=== PATIENT | female | born 1985 | race Caucasian/White ===

== ENCOUNTER 2022-01-21 21:47 | Emergency (ER) | payer MEDICAID, SELFPAY ==
[2022-01-21 22:15] VITALS: BP 117/64; PULSE 84; RESP 18; TEMP 35.9; O2SAT 97; BMI 27.4
--- NOTE | 2022-01-21 23:59 | ED.BACK ---
HPI - Back Pain/Injury General Chief Complaint: Back Injury/Pain Stated Complaint: Back Injury Time Seen by Provider: 01/21/22 22:23 History of Present Illness HPI Narrative: 36-year-old woman presenting to the emergency department with complaint of low back pain. Later today playing with baby nephew. Went to get off the floor and felt a pop in her low back and has been amplifying and pain ever since. Took some Aleve actually about 600 mg or so and helps a little bit but is throbbing pain just too much to let her sleep. Does not usually have a history of back problems. Has had some tingling in her left thigh anteriorly but no loss of sensation. No loss of bowel or bladder control. No radiating pain down her legs. Related Data Home Medications Medication Instructions Recorded Confirmed No Known Home Medications 01/21/22 01/21/22 Allergies Allergy/AdvReac Type Severity Reaction Status Date / Time Penicillins AdvReac Hives Verified 01/21/22 22:18 Review of Systems Status of ROS: Reports: 6 or more systems reviewed and unremarkable except as noted in History and below PFSH PFS Social History Smoking Status: Never smoker How often do you have a drink containing alcohol: never AUDIT-C Alcohol total score: 0 Non-prescribed substance use: denies use Exam Narrative: Exam Narrative: Is pleasant. NAD. Seems sore but not demonstrating tremendously in transition. Breathing easily. Conversing easily. Cardiovascular with regular rate and rhythm Abdomen is soft nontender. Anterior compression of the iliac crest does result in some low back discomfort. Straight leg raise is negative. She is well perfused without edema peripherally. She does have good strength. Mikayla's is positive indicating the left SI joint. She is sore to palpation around this area; even more so in the surrounding musculature Const: Vital Signs, click to edit/add: Vital Signs - 24 hr 01/21/22 22:15 Temperature 96.7 F L Pulse Rate [Pulse Oximeter] 84 Respiratory Rate 18 Blood Pressure [Le ft Upper Arm] 117/64 Pulse Oximetry 97 Oxygen Delivery Me thod Room Air Documenting provider has reviewed patient's vital signs: yes Course Vital Signs Vital signs: Initial Vital Signs Temperature 96.7 F L 01/21/22 22:15 Temperature Source Temporal Artery Scan 01/21/22 22:15 Pulse Rate 84 01/21/22 22:15 Respiratory Rate 18 01/21/22 22:15 Blood Pressure 117/64 01/21/22 22:15 Blood Pressure Mean 81 01/21/22 22:15 Blood Pressure Position Semi-Fowlers 01/21/22 22:15 Pulse Oximetry 97 01/21/22 22:15 Oxygen Delivery Method 01/21/22 22:15 Vital Signs Temperature 96.7 F L 01/21/22 22:15 Pulse Rate 84 01/21/22 22:15 Respiratory Rate 18 01/21/22 22:15 Blood Pressure 117/64 01/21/22 22:15 Pulse Oximetry 97 01/21/22 22:15 Oxygen Delivery Method 01/21/22 22:15 Temperature 96.7 F L 01/21/22 22:15 Pulse Rate 84 01/21/22 22:15 Respiratory Rate 18 01/21/22 22:15 Blood Pressure 117/64 01/21/22 22:15 Pulse Oximetry 97 01/21/22 22:15 Oxygen Delivery Method 01/21/22 22:15 MDM - Back Pain/Injury MDM Narrative Medical decision making narrative: This tingling that she discussed in her left thigh might represent a radicular symptom from some impingement however not entirely convincing. I would make some prednisone available though if not quickly improving. Discharge Plan Discharge Clinical Impression: Low back strain Patient Disposition: Home, Self-Care Condition: Stable Additional Instructions: I would ice your low back 2-3 times daily over the next few days. See handout for stretches/exercises for the low back. This strengthening would probably be good to prevent problems going forward. Can take up to 800 mg of ibuprofen per dose or up to 1000 mg of acetaminophen per dose. Alternative to the ibuprofen could be up to 500 mg of naproxen 2 times daily. Remember that each tablet of Ramer has 325 mg of acetaminophen in it. Follow-up in a week if not improved. Flexeril and Ramer and prednisone from [facility]. Should you choose to take prednisone, take 60 mg in the 1st dose. I probably would not start until later this morning as can be stimulating. Then 40 mg daily for 3 days and then finish with 20 mg. Prescriptions: No Action No Known Home Medications Stand Alone Forms: [facility] Info Instructions
== END 2022-01-22 00:25 | disposition home or self-care (01) ==
LOC: ED 01-22 00:22
PROVIDERS: Emergency Provider Family Medicine
DX: S39.012A Strain of muscle, fascia and tendon of lower back, initial encounter (principal); X50.1XXA Overexertion from prolonged static or awkward postures, initial encounter
CPT/HCPCS: 99283; 99284

== ENCOUNTER 2022-12-27 16:52 | Emergency (ER) | payer MEDICAID, SELFPAY ==
[2022-12-27 16:59] VITALS: BP 127/71; PULSE 95; RESP 18; TEMP 36.2; O2SAT 99; BMI 31.5
--- NOTE | 2022-12-27 17:21 | CRLHL7_ITS ---
For Patients: As a result of the Century Cures Act, medical imaging exams and procedure reports are released immediately into your electronic medical record. You may view this report before your referring provider. If you have questions, please contact your health care provider. INDICATION: Vaginal bleeding. TECHNIQUE: Ultrasound pelvis transabdominal and transvaginal for better assessment or to better visualize the endometrium. Real-time sonographic images with spectral and color Doppler imaging of the ovaries were obtained. COMPARISON: None. FINDINGS: Uterus: 6.7 x 4.8 x 5.8 cm. Normal echotexture of the myometrium. No masses. 1.5 centimeter nabothian cyst. Endometrium: Transvaginal imaging was performed to better evaluate the endometrium. Endometrial thickness measures 6 mm. No sign of endometrial mass or fluid. Right ovary 4.4 x 2.1 x 2.8 centimeters. Left ovary 3.6 x 3.5 x 2.5 centimeters. 6 millimeter echogenic foci in the left ovary, possibly calcification. No ovarian or adnexal masses. Normal arterial and venous blood flow is demonstrated in both ovaries. Cul-de-sac: No significant free fluid. IMPRESSION: 6 millimeter echogenic foci in the left ovary, possibly calcification. 1.5 centimeter nabothian cyst. Otherwise, unremarkable pelvic ultrasound for age. Dictated by Miguelito Diez MD @ 12/27/2022 7:04:25 PM (Electronically Signed)
--- NOTE | 2022-12-27 17:23 | ED_ITS ---
HPI - General Adult General Date Seen: 12/27/22 Chief complaint: Vaginal Bleeding Stated complaint: vaginal bleeding Time Seen by Provider: 12/27/22 16:56 History of Present Illness HPI narrative: Very pleasant 37-year-old female presenting to the ER today for heavy vaginal bleeding. She says that she typically has what she considers to be fairly heavy periods. She had her most recent period about a month ago in early November. 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 Her most recent menstrual cycle started 2 days ago on Sunday. It was initially fairly heavy, which is typical. However today it is much heavier than normal. She is being blood l eaking through her vagina. She soaking through a tampon and a pad every 30-60 minutes throughout the day. She is beginning to feel little bit run down and lightheaded. No fainting. She is not having much pelvic pain or abdominal pain. No fever. No vaginal discharge. She does not think she is . Although she has had heavy period for a while, she has not seen her provider for them. She was going to call the clinic today, but because of of heavy her bleeding was, she decided to come to the ER. She does not have any known history of fibroids, cysts, or other gynecologic abnormalities. Family history includes anemia in her grandfather and her mother. She had a step mother with cervical cancer. The patient has never had cervical cancer. Related Data Home Medications Medication Instructions Recorded Confirmed No Known Home Medications 01/21/22 01/21/22 Previous Rx's Medication Instructions Recorded norethindrone 1 mg-ethinyl 2 tab PO DAILY 5 days #21 tabs 12/27/22 estradiol 35 mcg (21) tablet ondansetron 4 mg disintegrating 4 mg PO Q8H #15 tabs 12/27/22 tablet Allergies Allergy/AdvReac Type Severity Reaction Status Date / Time Penicillins AdvReac Hives Verified 01/21/22 22:18 PFSH [facility] Social History Smoking Status: Never smoker Do you use any of these nicotine containing products: None Second hand tobacco smoke exposure: No How often do you have a drink containing alcohol: never How often do you have six or more drinks on one occasion: Never AUDIT-C Alcohol total score: 0 Non-prescribed substance use: denies use service: No Exam 2 Narrative: Exam Narrative: Constitutional: Appears well-developed and well-nourished. Alert. Conversant. Non toxic. HENT: Head: Atraumatic. Nose: Nose normal. Mouth/Throat: Oral mucosa is clear and moist. no trismus. Pharynx normal. Tonsils symmetric. No tonsillar enlargement, erythema, or exudate. Eyes: Conjunctivae normal. Conjunctiva not pale. EOM normal. Pupils equal, round, and reactive to light. No scleral icterus. Neck: Normal range of motion. Neck supple. No tracheal deviation present. Cardiovascular: Normal rate, regular rhythm. No gallop. No friction rub. No murmur heard. Symmetric radial artery pulses Pulmonary/Chest: Effort normal. No stridor. No respiratory distress. No wheezes. No rales. No rhonchi . No tenderness. Abdominal: Soft. Bowel sounds normal. No distension. No mass. No tenderness. No rebound. No guarding. No CVA tenderness. 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 Normal external genitalia. Small amount of dark red blood in the vaginal vault. No active bleeding. Cervix is normal. No cervicitis, cervical lesions. Os is closed. Musculoskeletal: RUE: Normal range of motion. No tenderness. No deformity LUE: Normal range of motion. No tenderness. No deformity RLE: Normal range of motion. No edema. No tenderness. No deformity LLE: Normal range of motion. No edema. No tenderness. No deformity Neurological: Alert and oriented to person, place, and time. Normal strength. CN II-VII intact. No sensory deficit. GCS eye subscore is 4. GCS verbal subscore is 5. GCS motor subscore is 6. Normal coordination Skin: Skin is warm and dry. No rash noted. No pallor. Normal capillary refill. Skin is pink, warm, well perfused. Palms and tongue are pink. Psychiatric: Normal mood. Normal affect. Const: Vital Signs, click to edit/add: Vital Signs - 24 hr 12/27/22 16:59 12/27/22 18:15 Temperature 97.2 F L Pulse Rate [Pulse Oximeter] 95 87 Respiratory Rate 18 18 Blood Pressure [Ri ght Upper Arm] 127/71 113/63 Pulse Oximetry 99 97 Oxygen Delivery Me thod Room Air Course Course ED Course: Recheck-vital stable. Pelvic exam completed. Bleeding slack inning. Reevaluation(s) Reevaluation #1: Recheck-stable. Reevaluation #3: Recheck-discussed labs and ultrasound results. Patient comfortable discharging home. Vital Signs Vital signs: Initial Vital Signs Temperature 97.2 F L 12/27/22 16:59 Temperature Source Temporal Artery Scan 12/27/22 16:59 Pulse Rate 95 12/27/22 16:59 Respiratory Rate 18 12/27/22 16:59 Blood Pressure 127/71 12/27/22 16:59 Blood Pressure Mean 89 12/27/22 16:59 Blood Pressure Position Supine 12/27/22 16:59 Pulse Oximetry 99 12/27/22 16:59 Oxygen Delivery Method Room Air 12/27/22 16:59 Vital Signs Temperature 97.2 F L 12/27/22 16:59 Pulse Rate 95 12/27/22 16:59 Respiratory Rate 18 12/27/22 16:59 Blood Pressure 127/71 12/27/22 16:59 Pulse Oximetry 99 12/27/22 16:59 Oxygen Delivery Method Room Air 12/27/22 16:59 Temperature 97.2 F L 12/27/22 16:59 Pulse Rate 87 12/27/22 18:15 Respiratory Rate 18 12/27/22 18:15 Blood Pressure 113/63 12/27/22 18:15 Pulse Oximetry 97 12/27/22 18:15 Oxygen Delivery Method Room Air 12/27/22 16:59 Medical Decision Making MDM Narrative Medical decision making narrative: This is a very pleasant 37-year-old previously healthy female presenting to the ER today with heavy vaginal bleeding. She does have a history of fairly regular but fairly heavy periods. However her bleeding today is most heavy she has ever experienced. Fortunately, she is hemodynamically stable. Her hemoglobin is normal. No signs of thrombocytopenia. She is not anticoagulated or coagulopathic. Bleeding seemed to slack in while she is here in the ER but she still has some minimal ongoing bleeding. She is not . Pelvic exam shows no sign of a vaginal laceration, cervical lesion, cervical site is. Pelvic ultrasound shows a structurally normal uterus and ovaries. No evidence for fibroids, cyst, or other significant abnormality. Exact cause of her heavy bleeding is unknown at this time. Suspect possibly dysfunctional uterine bleeding. Discussed options for treatment with the patient. Discussed the risks/benefits of a trial of control pills. She wishes to proceed with a trial of control periods. Prescription sent to the [facility] in [place], at her request. Also Zofran to prevent at gonzalez induced nausea. Precautions for return to the ER reviewed. Questions answered. Lab Data Labs: Lab Results 12/27/22 Range/Units 17:33 WBC 8.84 (4.50-11.00) K/uL RBC 4.62 (4.00-5.20) m/uL Hgb 12.7 (12.0-16.0) gm/dL Hct 37.3 (33.0-51.0) % MCV 81 (80-100) fL MCH 28 (26-34) pg MCHC 34 (32-36) gm/dL RDW Coeff of Chhaya 13.8 (11.5-15.5) % Plt Count 263 (140-440) K/uL Neut % (Auto) 58.4 (42.0-72.0) % Lymph % (Auto) 29.8 (20-44) % [place] % (Auto) 5.9 (0.0-11.0) % Eos % (Auto) 5.1 (0.0-7.0) % Baso % (Auto) 0.5 (0.0-3.0) % Neut # (Auto) 5.17 (1.7-7.0) K/uL Lymph # (Auto) 2.63 (0.90-2.90) K/uL [place] # (Auto) 0.50 (0.00-0.90) K/UL Eos # (Auto) 0.45 (0.00-0.50) K/uL Baso # (Auto) 0.04 (0.00-0.30) K/uL Abs Immat Gran (auto) 0.03 (0.00-0.30) K/uL Imm/Tot Granulo (auto) 0.3 % HCG, Qual Negative (Negative) Imaging Data U.S. pelvis: Attestation: I have reviewed the pertinent imaging results. Radiologist's impression: Uterus: 6.7 x 4.8 x 5.8 cm. Normal echotexture of the myometrium. No masses. 1.5 centimeter nabothian cyst. Endometrium: Transvaginal imaging was performed to better evaluate the endometrium. Endometrial thickness measures 6 mm. No sign of endometrial mass or fluid. Right ovary 4.4 x 2.1 x 2.8 centimeters. Left ovary 3.6 x 3.5 x 2.5 centimeters. 6 millimeter echogenic foci in the left ovary, possibly calcification. No ovarian or adnexal masses. Normal arterial and venous blood flow is demonstrated in both ovaries. Cul-de-sac: No significant free fluid. IMPRESSION: 6 millimeter echogenic foci in the left ovary, possibly calcification. 1.5 centimeter nabothian cyst. Otherwise, unremarkable pelvic ultrasound for age. 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 As we discussed, if you have any problems especially worsening bleeding, lightheadedness, abdominal pain, fever, or any problems, please come back to the ER right away. Prescriptions: New norethindrone-ethin estradiol 1-35 mg-mcg (21) tablet 2 tab PO DAILY 5 Days Qty: 21 0RF Rx Instructions: Take 2 tablets daily for 5 days, then 1 tablet daily until the pack is gone ondansetron 4 mg tablet,disintegrating 4 mg PO Q8H Qty: 15 0RF No Action No Known Home Medications Follow Up/Referrals: Provider,Not a Local [Primary Care Provider] - Stand Alone Forms: [facility] Info Instructions
[2022-12-27 17:37] LABS: Basophils Absolute Auto 0.04 K/uL (0.00-0.30); Basophils Percent Auto 0.5 % (0.0-3.0); Eosinophils Absolute Auto 0.45 K/uL (0.00-0.50); Eosinophils Percent Auto 5.1 % (0.0-7.0); Hematocrit 37.3 % (33.0-51.0); Hemoglobin* 12.7 gm/dL (12.0-16.0); Immature Granulocytes Abs Auto 0.03 K/uL (0.00-0.30); Immature Granulocytes Pct Auto 0.3 %; Lymphocytes Absolute Auto 2.63 K/uL (0.90-2.90); Lymphocytes Percent Auto 29.8 % (20-44); Mean Corpuscular HGB Conc 34 gm/dL (32-36); Mean Corpuscular Hemoglobin 28 pg (26-34); Mean Corpuscular Volume 81 fL (80-100); Monocytes Percent Auto 5.9 % (0.0-11.0); Neutrophils Absolute Auto 5.17 K/uL (1.7-7.0); Neutrophils Percent Auto 58.4 % (42.0-72.0); Platelet Count* 263 K/uL (140-440); RDW Coefficient of Variation % 13.8 % (11.5-15.5); Red Blood Count 4.62 m/uL (4.00-5.20); White Blood Count* 8.84 K/uL (4.50-11.00)
--- NOTE | 2022-12-27 18:08 | ED.NURSE ---
has had pelvic exam. no need to do swabs.
[2022-12-27 18:10] LABS: Slide Review Reflex No
[2022-12-27 18:15] VITALS: BP 113/63; PULSE 87; RESP 18; O2SAT 97
[2022-12-27 18:43] LABS: HCG Qualitative Serum* Negative (Negative)
== END 2022-12-27 19:29 | disposition home or self-care (01) ==
PROVIDERS: Emergency Provider Emergency Medicine
DX: N93.9 Abnormal uterine and vaginal bleeding, unspecified (principal)
CPT/HCPCS: 36415; 76830; 84703; 85025; 87210; 87491; 87591; 99283; 99284

== ENCOUNTER 2023-01-12 16:27 | Outpatient (CLI) | payer MEDICAID, SELFPAY | END 2023-01-12 16:28 | disposition home or self-care (01) | LOC: NFLDREF 01-14 06:48 | PROVIDERS: Visit Provider Registered Nurse | DX: N39.0 Urinary tract infection, site not specified (principal) | CPT/HCPCS: 87086 ==

== ENCOUNTER 2023-11-10 16:29 | Emergency (ER) | payer MEDICAID, SELFPAY ==
[2023-11-10] VITALS (10 sets, daily range): BP systolic 111–121; BP diastolic 53–64; PULSE 78–100; RESP 18; TEMP 36.6; O2SAT 96–100; BMI 31.5
--- NOTE | 2023-11-10 17:12 | ED_ITS ---
HPI - Back Pain/Injury General Time Seen by Provider: 17:16 Date Seen: 11/10/23 Chief Complaint: Back Injury/Pain Stated Complaint: Lower back pain Time Seen by Provider: 11/10/23 17:12 Source: patient and RN notes reviewed Mode of arrival: ambulatory Limitations: no limitations History of Present Illness HPI Narrative: This 38-year-old female is coming into the ER with complaint of low back pain that goes into both of her upper thighs, does not go below her knees. She went to bed fine yesterday, woke up in excruciating pain. She is having difficulty walking, walking increases the pain. There is no numbness or tingling. There was no loss of bowel or bladder control. She has no perineal anesthesia. She is a nonsmoker, no trauma, no fevers or chills. She has had some low back pain before, we saw her in 2021, took a course of prednisone and states she has not had problems sense. It was not like this. She has no idea what she did, awoke in pain this morning. Related Data Home Medications ?Medication ?Instructions ?Recorded ?Confirmed No Known Home Medications 11/10/23 11/10/23 Allergies Allergy/AdvReac Type Severity Reaction Status Date / Time Penicillins Allergy Mild Hives Verified 11/10/23 16:51 Sulfa (Sulfonamide Allergy Mild Rash Verified 11/10/23 16:51 Antibiotics) Review of Systems Narrative: As per HPI. [facility] Social History Smoking Status: Never smoker Do you use any of these nicotine containing products: None Second hand tobacco smoke exposure: No How often do you have a drink containing alcohol: never How often do you have six or more drinks on one occasion: Never AUDIT-C Alcohol total score: 0 Non-prescribed substance use: denies use service: No Exam Const: Vital Signs, click to edit/add: Vital Signs - 24 hr 11/10/23 16:47 Temperature 97.9 F Pulse Rate [Pulse Oximeter] 99 Respiratory Rate 18 Blood Pressure [Le ft Upper Arm] 121/64 Pulse Oximetry 97 Oxygen Delivery Me thod Room Air This 38-year-old female is lying in the bed in exam room 6. She is alert, interactive, no apparent distress. She does move slowly in attempt roll over for me to examine her back. Range of motion in movement obviously are painful for her. There is no midline tenderness of her spine, no paraspinous tenderness. I do get some bilateral sciatic notch tenderness on palpation into the deep buttocks. She has positive straight leg raise on the left, negative on the right. Strength is 5/5 and symmetric throughout both of her lower extremities. She has good peripheral pulses, normal sensation. CV regular rate and rhythm, no murmur. Lungs clear anteriorly, breathing easily on room air, no tachypnea P Documenting provider has reviewed patient's vital signs: yes Course Course ED Course: Reviewed with patient that we cannot do MRI imaging. Given that she has bilateral leg symptoms, will do CT imaging just ensure canal is without encroachment. She has no evidence of systemic illness such as fever. Will give her a dose of Toradol 30 mg IM to see if that will help with some pain management. She understands that she is likely going to need to follow up outpatient for further evaluation and treatment, possible physical therapy. Reevaluation(s) Time of Reevaluation #1: 18:23 Reevaluation #1: Reviewed CT findings with patient, she certainly has degenerative changes of her lumbar spine. In her situation with current symptoms, I would consider having her get an outpatient MRI with her primary provider. We will give her prednisone 20 mg b.i.d. x5 days and Flexeril 10 mg t.i.d. p.r.n. 15 tablets from [facility]. Patient does tell me she has had some relief of pain from the Toradol. Vital Signs Vital signs: Initial Vital Signs Temperature 97.9 F 11/10/23 16:47 Temperature Source Temporal Artery Scan 11/10/23 16:47 Pulse Rate 99 11/10/23 16:47 Respiratory Rate 18 11/10/23 16:47 Blood Pressure 121/64 11/10/23 16:47 Blood Pressure Mean 83 11/10/23 16:47 Blood Pressure Position Supine 11/10/23 16:47 Pulse Oximetry 97 11/10/23 16:47 Oxygen Delivery Method Room Air 11/10/23 16:47 Vital Signs Temperature 97.9 F 11/10/23 16:47 Pulse Rate 99 11/10/23 16:47 Respiratory Rate 18 11/10/23 16:47 Blood Pressure 121/64 11/10/23 16:47 Pulse Oximetry 97 11/10/23 16:47 Oxygen Delivery Method Room Air 11/10/23 16:47 Temperature 97.9 F 11/10/23 16:47 Pulse Rate 99 11/10/23 16:47 Respiratory Rate 18 11/10/23 16:47 Blood Pressure 121/64 11/10/23 16:47 Pulse Oximetry 97 11/10/23 16:47 Oxygen Delivery Method Room Air 11/10/23 16:47 Medications Administered Medications: Discontinued Medications Generic Name Dose Route Start Last Admin Trade Name Freq PRN Reason Stop Dose Admin Ketorolac Tromethamine 30 mg 11/10/23 17:21 11/10/23 17:35 Ketorolac 30 Mg/Ml Inj IM 11/10/23 17:22 30 mg ONCE ONE Administration MDM - Back Pain/Injury Imaging Data CT lumbar spine: Attestation: I have reviewed the pertinent imaging results. Radiologist's impression: Patient: ROSI DUPREE Facility:?[facility] Patient ID:?[id number] Site Patient ID:?[id number]. Site :?[id number] Study:?CT-Spine Lumbar -11/10/2023 5:37:48 PM Ordering Physician:Geo Mike Final Report: INDICATION: Lower back pain. TECHNIQUE: Multiplanar CT examination of the lumbar spine was performed without the use of intravenous contrast. COMPARISON: None. FINDINGS: Normal lumbar lordosis. No acute fractures or traumatic subluxation. The vertebral body heights are maintained. Mild degenerative disc disease throughout the lumbar spine. Multilevel facet degeneration, with a hooked, inferiorly projecting osteophyte arising from the right inferior facet of L4 resulting in moderate right neural foraminal stenosis of L4-5. There are small posterior disc osteophyte complexes at L2-3, L3-4 and L4-5 with mild narrowing of the osseous spinal canal. No significant prevertebral soft tissue edema. The visualized abdomen and pelvis appears within normal limits. The posterior paraspinal soft tissues appear unremarkable. IMPRESSION: 1. No acute fracture or traumatic subluxation of the lumbar spine. 2. Multilevel lumbar spondylosis, with hypertrophic degenerative changes resulting in at least moderate right neural foraminal stenosis of L4-5, detailed above. CT is limited in the evaluation of the intrathecal contents. Please note that all CT scans at this facility use dose modulation, iterative reconstruction, and/or weight-based dosing when appropriate to reduce radiation dose to as low as reasonably achievable. Dictated by Eric Davies MD @ 11/10/2023 6:18:19 PM (Electronic Signature) Discharge Plan Discharge Clinical Impression: Lumbar radiculopathy Patient Disposition: Home, Self-Care Condition: Stable Instructions: Lumbar Radiculopathy (ED), Lower Back Exercises (ED) Additional Instructions: Prednisone 20 mg twice a day for 5 days, Flexeril 10 mg up to 3 times a day as needed for pain or muscle spasm. Tylenol 1000 mg 3 times a day baseline for pain. Supplement with ibuprofen per bottle directions as needed for extra pain management. Need to follow up with her primary care provider next week, would definitely recommend consideration of MRI given the degenerative findings on CT scan of your lumbar spine. Consider physical therapy rehabilitation program for your back, primary care provider can refer you. If you develop any concerns or symptoms as noted in the discharge handout, please seek re-evaluation. Activity Level: Activity as Tolerated Prescriptions: No Action No Known Home Medications Follow Up/Referrals: Provider,Not a Local [Primary Care Provider] - Stand Alone Forms: [employer] Info Instructions
--- NOTE | 2023-11-10 17:21 | CRLHL7_ITS ---
For Patients: As a result of the Century Cures Act, medical imaging exams and procedure reports are released immediately into your electronic medical record. You may view this report before your referring provider. If you have questions, please contact your health care provider. INDICATION: Lower back pain. TECHNIQUE: Multiplanar CT examination of the lumbar spine was performed without the use of intravenous contrast. COMPARISON: None. FINDINGS: Normal lumbar lordosis. No acute fractures or traumatic subluxation. The vertebral body heights are maintained. Mild degenerative disc disease throughout the lumbar spine. Multilevel facet degeneration, with a hooked, inferiorly projecting osteophyte arising from the right inferior facet of L4 resulting in moderate right neural foraminal stenosis of L4-5. There are small posterior disc osteophyte complexes at L2-3, L3-4 and L4-5 with mild narrowing of the osseous spinal canal. No significant prevertebral soft tissue edema. The visualized abdomen and pelvis appears within normal limits. The posterior paraspinal soft tissues appear unremarkable. IMPRESSION: 1. No acute fracture or traumatic subluxation of the lumbar spine. 2. Multilevel lumbar spondylosis, with hypertrophic degenerative changes resulting in at least moderate right neural foraminal stenosis of L4-5, detailed above. CT is limited in the evaluation of the intrathecal contents. Please note that all CT scans at this facility use dose modulation, iterative reconstruction, and/or weight-based dosing when appropriate to reduce radiation dose to as low as reasonably achievable. Dictated by Eric Davies MD @ 11/10/2023 6:18:19 PM (Electronically Signed)
[2023-11-10] MEDS: KETOROLAC 30 MG/ML inj IM (17:35)
== END 2023-11-10 18:39 | disposition home or self-care (01) ==
PROVIDERS: Emergency Provider Family Medicine
DX: M54.16 Radiculopathy, lumbar region (principal)
CPT/HCPCS: 72131; 96372; 99283; 99284; J1885

== ENCOUNTER 2024-04-26 21:13 | Emergency (ER) | payer MEDICAID, SELFPAY ==
--- OUTSIDE RECORDS SUMMARY | 2024-04-26 21:15 | XMS_ITS | Clinical Summary ---
[facility] Address [address], [place] [address] Care Team Providers Care Rejected Items Clerk Name Role Phone Jossy Guerin MD Primary Care Provider [phone] Source Comments You are receiving this document as you are listed as the primary care provider,follow-up provider, or the patient has been referred to you for consultation.This is in compliance with the Medicare and[facility] E[facility] Incentive Program,which states Providers who transition their patient to another setting of careor provider of care or refers their patient to another provider of care shouldprovide summary care record for each transition of care or referral. [employer] Allergies Active Allergy Reactions Criticality Noted Date Comments Amoxicillin 11/10/2010 Amoxicillin-Pot Clavulanate 11/11/19 11 Penicillins 11/10/2010 Medications No known medications Active Problems Problem Noted Date Diagnosed Date Indication for care in labor or delivery 013 delivery delivered 07/02/2012 Abdominal cramping 07/01/2012 Immunizations Immunization Administration Dates Next Due HepB Adult (Engerix-B, 20+ yrs, 3 dose series) 0 03/02/2011,11/24/2010 Pfizer Monovalent 12+ Purple Top 03/04/2021,01/20 Tdap 07/03/2012 Social History Tobacco Use Types Packs/Day Years Used Date Smoking Tobacco: Never Smokeless Tobacco: Never Comments No Sex and Gender Information Value Date Recorded Sex Assigned at Not on file Legal Sex Female 4:53 AM CDT Gender Identity Not on file Sexual Orientation Not on file Last Filed Vital Signs Vital Sign Reading Time Taken Comments Blood Pressure 120/53 11/02/2019 4:55 PM CDT Pulse 107 11/02/2019 4:55 PM CDT Temperature 37.1 C (98.7 F) 11/02/2019 4:55 PM CDT Respiratory Rate 16 11/02/2019 4:55 PM CDT Oxygen Saturation 100% 11/02/2019 4:55 PM CDT Inhaled Oxygen Concentration - - Weight 81.6 kg (180 lb) 07/12/2012 1:07 PM CDT Height - - Body Mass Index - - Plan of Treatment Health Maintenance Due Date Last Done Comments Hep C Screening (Preventive Services) 1985 HIV Screening (Preventive Services) 2001 Adult Preventive Visit 2003 HepB (3) 05/26/2011 03/02/2011, 11/24/2010 Cervical Cancer Screening Due 08/16/2012 08/15/2012 DTaP/Tdap/Td (2 - Tdap) 07/03/2022 07/03/2012 COVID-19 Vaccine (3 - 2023-2 5 season) 2023 03/04/2021, 02/11/2021 Influenza (#1) 2023 Zoster/Shingles (1 of 2) 2035 HPV Vaccine Aged Out No longer eligi ble based on patient's age to complete this topic HepA Aged Out No longer eligi ble based on patient's age to complete this topic Hib Aged Out No longer eligi ble based on patient's age to complete this topic IPV (Polio) Aged Out No longer eligi ble based on patient's age to complete this topic MCV4 Aged Out No longer eligi ble based on patient's age to complete this topic Meningococcal B Aged Out No longer el igible based on patient's age to complete this topic Pneumococcal Aged Out No longer eligi ble based on patient's age to complete this topic Insurance [facility] Care Teams Rejected Items Clerk Relationship Specialty [place] [id number] [place] [id number] PCP - General 05/20/14
--- OUTSIDE RECORDS SUMMARY | 2024-04-26 21:15 | XMS_ITS | Clinical Summary ---
Author Organization [facility] Address [facility] [place] [address] Care Team Providers Care Land Surveyor Manager Name Role Phone [place], Valery [facility] - Primary Care Provider Allergies Active Allergy Reactions Criticality Noted Date Comments Amoxicillin Hives 12/21/2014 Happened at age 16, and was covered in hives Penicillins Hives 12/21/2014 Medications azelastine 137 mcg/actuation (ASTELIN) nasal sprayIndications: Acute recurrent pansinusitis Inhale 1 Walker into affected nostril(s) two times daily. 30 mL 4 Active Active Problems Problem Noted Date Diagnosed Date delivery delivered 07/02/20120 10/2022 Indication for care in labor or delivery 013 10/28/2022 Abdominal cramping 07/01/2012 10/28/2022 Encounters Date Type Department Care Team Description 02/25/2024 3:45 PM AS400 CONSULTANT Office Visit [facility] [place] [address] [facility] [address] [place] [id number] Shaheen Laureano NP Sinus Problem 02/25/2024 Travel from Last 3 Months Social History Tobacco Use Types Packs/Day Years Used Date Smoking Tobacco: Never Smokeless Tobacco: Never Tobacco Cessation:Counseling Given: Yes Social Connections Answer Date Recorded Do you often feel lonely or isolated from those around you? 0 02/25/2024 Financial Resource Strain Answer Date R ecorded Difficulty of Paying Living Expenses 3 02/25/2024 Difficulty of Paying Living Expenses Not on file 02/25/2024 Food Insecurity Answer Date Recorded Do you worry your food will run out before you are able to buy more? 1 02/25/2024 Transportation Needs Answer Date Record ed Does lack of transportation keep you from medica l appointments? 1 02/25/2024 Does lack of transportation keep you from work, meetings or getting things that you need? 1 02/25/2024 Housing Stability Answer Date Recorded What is your housing situation today? 1 02/25/2024 Utilities Answer Date Recorded Do you have trouble paying f or utilities (for example, heat, electricity, water, phone)? 1 02/25/2024 Comments No Sex and Gender Information Value Date Recorded Sex Assigned at Female 12/17/2020 1:08 PM CDT Legal Sex Female 7:28 AM AS400 CONSULTANT Gender Identity Female 12/17/2020 1:08 PM CDT Sexual Orientation Not on file Obstetrics History Last Filed Vital Signs Vital Sign Reading Time Taken Comments Blood Pressure 114/61 02/25/2024 5:16 PM AS400 CONSULTANT Pulse 72 02/25/2024 5:16 PM AS400 CONSULTANT Temperature 36.9 C (98.4 F) 02/25/2024 5:16 PM AS400 CONSULTANT Respiratory Rate 18 11/13/2022 4:06 PM CDT Oxygen Saturation 99% 02/25/2024 5:1 6 PM AS400 CONSULTANT Inhaled Oxygen Concentration - - Weight 83.5 kg (184 lb) 02/25/2024 5:16 PM AS400 CONSULTANT patient reported Height 167.6 cm (5' 6) 06/07/2018 7:46 PM CDT Body Mass Index 29.7 06/07/2018 7:46 PM CDT Plan of Treatment Health Maintenance Due Date Last Done Comments Tdap 1996 Depression screening for age 12+ 1997 HIV for age 15-65 2000 Hepatitis C screening for age 18-79 2003 Tetanus booster 2005 Pap test for age 21-65 2006 BMI (ht and wt on same day) for age 18+ 06/08/2019 06/07/2018, 03/19/2018, 02/07/2017, Additional history exists (IA) Influenza for age 9-49 10/21/2023 COVID-19 vaccine series (2023- season) 2023 03/04/2021, 02/11/2021 Pneumococcal series for age 6-49 Aged Out No longer eligible based on patient's age to complete this topic [place] [address] [address] [employer] Care Teams Land Surveyor Manager Relationship Specialty Start Date End Date [facility] [address] [place] [address] PCP - General 09/06/16
--- OUTSIDE RECORDS SUMMARY | 2024-04-26 21:15 | XMS_ITS | Clinical Summary ---
Author Organization [facility] Address [address] [place] [address]. [place] [address] Care Team Providers Care Change Control Coordinator Name Role Phone Clinic, [facility] Allergies Active Allergy Reactions Criticality Noted Date Comments Amoxicillin 04/08/2011 Amoxicillin-Pot Clavulanate 11/11/19 11 Penicillins Hives 04/08/2011 Medications Vit-Fe Fumarate-FA ( MULTIVITAMIN PLUS IRON) 27-0.8 MG TABS Take 1 tablet by mouth daily. Active oxyCODONE (ROXICODONE) 5 MG immediate release tabletIndications : delivery delivered Take 1-2 tablets by mouth every 3 hours as needed. 28 tablet 0 3 Active ibuprofen (ADVIL,MOTRIN) 400-800 mg tabletIndications : delivery delivered Take 1-2 tablets by mouth every 6 hours as needed (cramping). 90 tablet 0 3 Active senna-docusate (SENOKOT-S;JESSE LACE) 8.6-50 MG per tabletIndications : delivery delivered Take 1-2 tablets by mouth 2 times daily. 30 tablet 0 3 Active nitrofurantoin, macrocrystal-mono hydrate, (MACROBID) 100 MG capsuleIndication s:Urinary Tract Infection Take 1 capsule by mouth every 12 hours. Indications: Urinary Tract Infection 14 capsule 0 3 Active Misc. Devices (BREAST PUMP) MISCIndications:B reastfeeding (infant) 1 each as needed. 1 Device 0 3 Active sucralfate (CARAFATE) 1 GM tablet Take 1 tablet (1 g) by mouth 4 times daily as needed for nausea (epigastric discomfort) 60 tablet 0 Active guaiFENesin (MUCINEX) 600 MG 12 hr tablet Take 2 tablets (1,200 mg) by mouth 2 times daily 20 tablet 2 Active Active Problems Problem Noted Date Diagnosed Date Indication for care in labor or delivery 013 delivery delivered 07/02/2012 Abdominal cramping 07/01/2012 Immunizations Name Administration Dates Next Due TDAP Vaccine (Adacel) 07/03/2012 Family History Medical History Relation Comments Cerebrovascular Disease Maternal Grandmother Diabetes Maternal Grandmother Hypertension Maternal Grandmother Cancer Paternal Grandmother Relation Status Comments Maternal Grandmother Paternal Grandmother Social History Tobacco Use Types Packs/Day Years Used Date Smoking Tobacco: Never Smokeless Tobacco: Never Alcohol Use Standard Drinks/Week Comments No 0 (1 standard drink = 0.6 oz pur e alcohol) Adolescent Education Answer Date Record ed Getting School Help Needed Not on file 11/26 Comments Unknown Sex and Gender Information Value Date Recorded Sex Assigned at Not on file Legal Sex Female 3:18 AM PICKING TECH Gender Identity Not on file Sexual Orientation Not on file Last Filed Vital Signs Vital Sign Reading Time Taken Comments Blood Pressure 130/82 03/26/2021 5:30 PM PICKING TECH Pulse 105 03/26/2021 5:30 PM PICKING TECH Temperature 36.1 C (97 F) 03/26/2021 4:43 PM PICKING TECH Respiratory Rate 19 03/26/2021 4:43 PM PICKING TECH Oxygen Saturation 100% 03/26/2021 5:00 PM PICKING TECH Inhaled Oxygen Concentration - - Weight 88.5 kg (195 lb) 07/02/2012 6:43 PM CDT Height 167.6 cm (5' 6) 07/02/2012 6:43 PM CDT Body Mass Index 31.47 07/02/2012 6:43 PM CDT Plan of Treatment Not on file Insurance [facility] Care Teams Change Control Coordinator Relationship Specialty Start Date End Date Clinic, Valery Allred [address] [address] PCP - General 07/18/22
--- OUTSIDE RECORDS SUMMARY | 2024-04-26 21:15 | XMS_ITS | Clinical Summary ---
Author Organization [facility] Address [address] [place] [address] Care Team Providers Care Trust Manager Name Role Phone None Reported, Pcp Primary Care Provider Unavail able Source Comments Patient records contain information from all sites at [facility]. For routine questions regarding patient records, call [phone] during business hours, M-F 8:00 AM - 5:00 PM Central Time. Record requests for emergency care only can be directed to [phone] at any time.[facility] Allergies Active Allergy Reactions Criticality Noted Date Comments Penicillins Hives (Reselect Reaction) 11/10/2010 Happened at age 16, and was covered in hives Sulfa (Sulfonamide Antibiotics) Rash 12/16/2023 Medications sertraline (Zoloft) 100 mg tablet Take 1 tablet by mouth daily. 12/13/2023 Active Active Problems No known active problems Immunizations Immunization Administration Dates Next Due HepB Adult 03/02/2011,11/24/2010 Tdap 07/03/2012 Social History Tobacco Use Types Packs/Day Years Used Date Smoking Tobacco: Never Smokeless Tobacco: Never Tobacco Cessation:Counseling Given: Not Answered Alcohol Use Standard Drinks/Week Comments Never 0 (1 standard drink = 0.6 oz pur e alcohol) Dental Answer Date Recorded Dental: Regular Dentist Unknown 08/05/19 24 Comments No Sex and Gender Information Value Date Recorded Sex Assigned at Not on file Legal Sex Female 1:10 PM CDT Gender Identity Not on file Sexual Orientation Not on file Last Filed Vital Signs Vital Sign Reading Time Taken Comments Blood Pressure 127/86 12/16/2023 11:30 AM CDT Pulse 90 12/16/2023 11:30 AM CDT Temperature 36.5 C (97.7 F) 12/16/2023 11:30 AM CDT Respiratory Rate 16 12/16/2023 11:30 AM CDT Oxygen Saturation 100% 12/16/2023 11:30 AM CDT Inhaled Oxygen Concentration - - Weight 84.4 kg (186 lb) 12/16/2023 11:29 AM CDT Height 167.6 cm (5' 6) 12/16/2023 11:29 AM CDT Body Mass Index 30.02 12/16/2023 11:29 AM CDT Plan of Treatment Health Maintenance Due Date Last Done Comments Cervical/Vaginal Cancer Screening 1985 Hepatitis B Screening 1985 Hepatitis C Screening 1985 Lipid (Cholesterol) Screening 1985 Hepatitis B Vaccines (3 of 3 - 19+ 3-dose series) 05/26/2011 03/02/2011, 11/24/2010 DTaP,Tdap,and Td Vaccines (2 - Td or Tdap) 07/03/2022 07/03/2012 COVID-19 Vaccine (3 - 2023-2 5 season) 2023 03/04/2021, 02/11/2021 Influenza Vaccine (#1) 2023 Depression Screening (Annual PHQ-2) 02/20/2024 HPV Vaccines Aged Out No longer eligi ble based on patient's age to complete this topic IPV Vaccines Aged Out No longer eligi ble based on patient's age to complete this topic Pneumococcal vaccine (0-49 years) Aged Out No longer eligible b ased on patient's age to complete this topic Insurance [facility] Care Teams Trust Manager Relationship Specialty Start Date End Date None Reported, Pcp PCP - General Family Medicine 12/16/23
--- OUTSIDE RECORDS SUMMARY | 2024-04-26 21:15 | XMS_ITS | Encounter Summary ---
Author Organization [facility] Address [address] [place] [address]. [place] [address] Care Team Providers Care Dimensional Inspector Name Role Phone Torsten Arizmendi Primary Care Provider Unavailable Clinic, [facility] Encounter Details Date Type Department Care Team (Late st Contact Info) Description 03/26/2021 Documentation Only INTERFACED REPORT Unknown, Provider Social History Tobacco Use Types Packs/Day Years Used Date Smoking Tobacco: Never Smokeless Tobacco: Never Alcohol Use Standard Drinks/Week Comments No 0 (1 standard drink = 0.6 oz pur e alcohol) Comments Unknown Sex and Gender Information Value Date Recorded Sex Assigned at Not on file Legal Sex Female 3:18 AM STUDENT FINANCE ADVISOR Gender Identity Not on file Sexual Orientation Not on file COVID-19 Exposure Response Date Recorded In the last month, have you been in contact with someone who was confirmed or suspected to have Coronavirus / COVID-19? No / Unsure 03/26/2021 4:39 PM STUDENT FINANCE ADVISOR documented as of this encounter Plan of Treatment Not on file documented as of this encounter Visit Diagnoses Not on filedocumented in this encounter Additional Health Concerns Infection Onset Date Last Indicated Resolved Time Rule Out COVID-19 03/26/2021 03/26/2021 03/26/2021 5:29 PM STUDENT FINANCE ADVISOR documented as of this encounter Care Teams Dimensional Inspector Relationship Specialty Start Date End Date Torsten Arizmendi PCP - General Family [facility] [facility] [address] [place] [address] PCP - General 07/18/22 documented as of this encounter
[2024-04-26 21:30] VITALS: BP 117/80; PULSE 89; RESP 20; TEMP 36.7; O2SAT 99; BMI 29.1
--- NOTE | 2024-04-26 21:33 | ED_ITS ---
HPI - General Adult General Chief complaint: Unspecified Complaint, Adult Stated complaint: thinks she is anemic Time Seen by Provider: 04/26/24 21:33 History of Present Illness HPI narrative: CC: Fatigued pt. with tiredness and headache. anemia runs in the family. denies fevers, n/v, diarrhea. 39-year-old woman presenting to the emergency department concern of fatigue. Has been going on for 5 days maybe a week. She notes a family history of anemia and so is concerned that she might have the same. She seems to think that maybe she has been in the past. Does note some heavy periods and stomach ulcer she thinks. Has not had dark stools recently. No abdominal pain. Not lightheaded. Maybe a little short of breath when walking sometimes. No rashes. No sore throat. No fever. Has a little headache. No visual disturbance. No nausea noted. Got more worried when she spent most of today sleeping which would be atypical. Related Data Home Medications ?Medication ?Instructions ?Recorded ?Confirmed No Known Home Medications 11/10/23 04/26/24 Allergies Allergy/AdvReac Type Severity Reaction Status Date / Time amoxicillin Allergy Mild Hives Verified 04/26/24 21:32 Penicillins Allergy Mild Hives Verified 04/26/24 21:32 Sulfa (Sulfonamide Allergy Mild Rash Verified 04/26/24 21:32 Antibiotics) Review of Systems Status of ROS: Reports: 6 or more systems reviewed and unremarkable except as noted in History and below [facility] Medical History No significant past medical history Surgical History No significant past surgical history Social History Smoking Status: Never smoker Do you use any of these nicotine containing products: None Second hand tobacco smoke exposure: No How often do you have a drink containing alcohol: never How often do you have six or more drinks on one occasion: Never AUDIT-C Alcohol total score: 0 Non-prescribed substance use: denies use service: No Exam Narrative: Exam Narrative: Pleasant. NAD. Blunted affect. Does not elaborate on her answers to questions. Lungs are clear. Heart in regular rate and rhythm. Skin is warm and dry well-perfused. Extremities are without edema. Abdomen soft nontender. Oropharynx is moist. No erythema. 1 cm lymph node I think is palpable in the left upper neck/submandibular area. Nontender. Mucous membranes maybe a little pale. Const: Vital Signs, click to edit/add: Vital Signs - 24 hr 04/26/24 21:30 Temperature 98.0 F Pulse Rate [Right Pulse Oximeter] 89 Respiratory Rate 20 Blood Pressure [Ri ght Upper Arm] 117/80 Pulse Oximetry 99 Oxygen Delivery Me thod Room Air Documenting provider has reviewed patient's vital signs: yes Course Vital Signs Vital signs: Initial Vital Signs Temperature 98.0 F 04/26/24 21:30 Temperature Source Temporal Artery Scan 04/26/24 21:30 Pulse Rate 89 04/26/24 21:30 Respiratory Rate 20 04/26/24 21:30 Blood Pressure 117/80 04/26/24 21:30 Blood Pressure Mean 92 04/26/24 21:30 Blood Pressure Position Sitting 04/26/24 21:30 Pulse Oximetry 99 04/26/24 21:30 Oxygen Delivery Method Room Air 04/26/24 21:30 Vital Signs Temperature 98.0 F 04/26/24 21:30 Pulse Rate 89 04/26/24 21:30 Respiratory Rate 20 04/26/24 21:30 Blood Pressure 117/80 04/26/24 21:30 Pulse Oximetry 99 04/26/24 21:30 Oxygen Delivery Method Room Air 04/26/24 21:30 Temperature 98.0 F 04/26/24 22:57 Pulse Rate 84 04/26/24 22:57 Respiratory Rate 20 04/26/24 22:57 Blood Pressure 121/74 04/26/24 22:57 Pulse Oximetry 99 04/26/24 22:57 Oxygen Delivery Method Room Air 04/26/24 22:57 Medical Decision Making MDM Narrative Medical decision making narrative: Concern is screen for anemia per her concern. Would check though for COVID influenza and RSV; appears COVID in particular has been causing fatigue. Check also chemistries for electrolyte abnormalities. Urinary tract symptoms described. No cough or cold symptoms. I suppose could also consider vitamin deficiencies but I think would consider this more as outpatient if necessary. Is not endorsing any mental health concerns at this time. Poor sleep could be related as well. Pending results of labs, does not appear to need any interventions otherwise. Labs are overall reassuring. Stable vitals. See patient discharge plan for further discussion As said, you do not appear to be anemic today. Practice good sleep hygiene, try to get quality and regular sleep. Stay well- hydrated. Eat good food. Try to get a little heart pumping exercise in daily. If fatigue persisting, would follow up in primary care for further evaluation/workup. Medical Records Medical records reviewed: Yes I reviewed the patient's medical records Lab Data Lab results reviewed: Yes I reviewed the patient's lab results Labs: Lab Results 04/26/24 04/26/24 Range/Units 21:39 22:05 WBC 9.29 (4.50-11.00) K/uL RBC 4.88 (4.00-5.20) m/uL Hgb 11.3 L (12.0-16.0) gm/dL Hct 36.7 (33.0-51.0) % MCV 75 L (80-100) fL MCH 23 L (26-34) pg MCHC 31 L (32-36) gm/dL RDW Coeff of Chhaya 13.8 (11.5-15.5) % Plt Count 307 (140-440) K/uL Neut % (Auto) 66.9 (42.0-72.0) % Lymph % (Auto) 20.1 (20-44) % [place] % (Auto) 4.7 (0.0-11.0) % Eos % (Auto) 7.9 H (0.0-7.0) % Baso % (Auto) 0.3 (0.0-3.0) % Neut # (Auto) 6.21 (1.7-7.0) K/uL Lymph # (Auto) 1.87 (0.90-2.90) K/uL [place] # (Auto) 0.40 (0.00-0.90) K/UL Eos # (Auto) 0.70 H (0.00-0.50) K/uL Baso # (Auto) 0.03 (0.00-0.30) K/uL Abs Immat Gran (auto) 0.01 (0.00-0.30) K/uL Imm/Tot Granulo (auto) 0.1 % Sodium 138 (135-149) mmol/L Potassium 3.8 (3.6-5.1) mmol/L Chloride 102 (96-114) mmol/L Carbon Dioxide 28 (20-32) mmol/L Anion Gap 8 (7-15) mEq/L BUN 9 (5-24) mg/dL Creatinine 0.7 (0.5-1.5) mg/dL Estimated Creat Clear 101.01 Estimated GFR 113 ml/min Glucose 131 H (60-115) mg/dL Calcium 9.1 (8.4-10.6) mg/dL SARS-CoV-2 (PCR) Negative SARS-CoV-2 (Negative) Influenza Type A (PCR) Negative PCR FLU A (Negative) Influenza Type B (PCR) Negative PCR FLU B (Negative) RSV (PCR) Negative PCR RSV (Negative) Discharge Plan Discharge Clinical Impression: Fatigue Patient Disposition: Home w/ Parent or Adult Condition: Stable Additional Instructions: As said, you do not appear to be anemic today. Practice good sleep hygiene, try to get quality and regular sleep. Stay well- hydrated. Eat good food. Try to get a little heart pumping exercise in daily. If fatigue persisting, would follow up in primary care for further evaluation/workup. Prescriptions: No Action No Known Home Medications Follow Up/Referrals: Provider,Not a Local [Primary Care Provider] - Stand Alone Forms: [employer] Info Instructions
[2024-04-26 22:12] LABS: Basophils Absolute Auto 0.03 K/uL (0.00-0.30); Basophils Percent Auto 0.3 % (0.0-3.0); Eosinophils Percent Auto 7.9 % (0.0-7.0); Hematocrit 36.7 % (33.0-51.0); Hemoglobin* 11.3 gm/dL (12.0-16.0); Immature Granulocytes Abs Auto 0.01 K/uL (0.00-0.30); Immature Granulocytes Pct Auto 0.1 %; Lymphocytes Absolute Auto 1.87 K/uL (0.90-2.90); Lymphocytes Percent Auto 20.1 % (20-44); Mean Corpuscular HGB Conc 31 gm/dL (32-36); Mean Corpuscular Hemoglobin 23 pg (26-34); Mean Corpuscular Volume 75 fL (80-100); Monocytes Percent Auto 4.7 % (0.0-11.0); Neutrophils Absolute Auto 6.21 K/uL (1.7-7.0); Neutrophils Percent Auto 66.9 % (42.0-72.0); Platelet Count* 307 K/uL (140-440); RDW Coefficient of Variation % 13.8 % (11.5-15.5); Red Blood Count 4.88 m/uL (4.00-5.20); White Blood Count* 9.29 K/uL (4.50-11.00)
[2024-04-26 22:13] LABS: Slide Review Reflex No
--- OUTSIDE RECORDS SUMMARY | 2024-04-26 22:16 | XMS_ITS | Clinical Summary ---
Author Organization [facility] Address [address] [place] [address] Care Team Providers Care Smutter Name Role Phone None Reported, Pcp Primary Care Provider Unavail able Source Comments Patient records contain information from all sites at [facility]. For routine questions regarding patient records, call [phone] during business hours, M-F 8:00 AM - 5:00 PM Central Time. Record requests for emergency care only can be directed to [phone] at any time.[facility] Allergies Active Allergy Reactions Criticality Noted Date [...] patient's age to complete this topic Insurance [facility] Care Teams Smutter Relationship Specialty Start Date End Date None Reported, Pcp PCP - General Family Medicine 12/16/23
--- OUTSIDE RECORDS SUMMARY | 2024-04-26 22:16 | XMS_ITS | Clinical Summary ---
Author Organization [facility] Address [facility] [place] [address] Care Team Providers Care Field Sales Representative Name Role Phone [place], Valery Allred [facility] - Primary Care Provider Allergies Active Allergy Reactions Criticality Noted Date Comments Amoxicillin Hives 12/21/2014 Happened at age 16, and was covered in hives Penicillins Hives 12/21/2014 Medications azelastine 137 mcg/actuation (ASTELIN) nasal sprayIndications: Acute recurrent pansinusitis Inhale 1 Pierz into affected nostril(s) two times daily. 30 mL 4 Active Active Problems Problem Noted Date Diagnosed Date delivery delivered 07/02/20120 10/2022 Indication for care in labor or delivery 013 10/28/2022 Abdominal cramping 07/01/2012 10/28/2022 Encounters Date Type Department Care Team Description 02/25/2024 3:45 PM ELECTRICAL LINEMAN Office Visit [facility] [place] [address] [facility] [address] [place] [id number] Shaheen Laureano NP [...] PM CDT Legal Sex Female 7:28 AM ELECTRICAL LINEMAN Gender Identity Female 12/17/2020 1:08 PM CDT Sexual Orientation Not on file Obstetrics History Last Filed Vital Signs Vital Sign Reading Time Taken Comments Blood Pressure 114/61 02/25/2024 5:16 PM ELECTRICAL LINEMAN Pulse 72 02/25/2024 5:16 PM ELECTRICAL LINEMAN Temperature 36.9 C (98.4 F) 02/25/2024 5:16 PM ELECTRICAL LINEMAN Respiratory Rate 18 11/13/2022 4:06 PM CDT Oxygen Saturation 99% 02/25/2024 5:1 6 PM ELECTRICAL LINEMAN Inhaled Oxygen Concentration - - Weight 83.5 kg (184 lb) 02/25/2024 5:16 PM ELECTRICAL LINEMAN patient reported Height 167.6 cm (5' 6) [...] patient's age to complete this topic [place] [address] [place] [address] [employer] Care Teams Field Sales Representative Relationship Specialty Start Date End Date [facility] [address] [place] [address] PCP - General 09/06/16
--- OUTSIDE RECORDS SUMMARY | 2024-04-26 22:16 | XMS_ITS | Clinical Summary ---
Author Organization [facility] Address [address] [place] [address]. [place] [address] Care Team Providers Care Wood Preserving Plant Laborer Name Role Phone Clinic, Valery [place] Primary [facility] Pr ovider Allergies Active Allergy [...] on file Legal Sex Female 3:18 AM TOBACCO BLENDER Gender Identity Not on file Sexual Orientation Not on file Last Filed Vital Signs Vital Sign Reading Time Taken Comments Blood Pressure 130/82 03/26/2021 5:30 PM TOBACCO BLENDER Pulse 105 03/26/2021 5:30 PM TOBACCO BLENDER Temperature 36.1 C (97 F) 03/26/2021 4:43 PM TOBACCO BLENDER Respiratory Rate 19 03/26/2021 4:43 PM TOBACCO BLENDER Oxygen Saturation 100% 03/26/2021 5:00 PM TOBACCO BLENDER Inhaled Oxygen Concentration - - Weight 88.5 kg (195 lb) 07/02/2012 6:43 PM CDT Height 167.6 cm (5' 6) 07/02/2012 6:43 PM CDT Body Mass Index 31.47 07/02/2012 6:43 PM CDT Plan of Treatment Not on file Insurance [facility] Care Teams Wood Preserving Plant Laborer Relationship Specialty Start Date End Date Clinic, Valery Allred [address] [address] PCP - General 07/18/22
--- OUTSIDE RECORDS SUMMARY | 2024-04-26 22:16 | XMS_ITS | Clinical Summary ---
[facility] Address [address], [place] [address] Care Team Providers Care Party Plan Sales Unit Advisor Name Role Phone Jossy Guerin MD Primary Care Provider [phone] Source Comments You are receiving this document as you are listed as the primary care provider,follow-up provider, or the patient has been referred to you for consultation.This is in compliance with the Medicare and[facility] EHR Incentive Program,which states Providers who transition their patient to another setting of careor provider of care or refers their patient to another provider of care shouldprovide summary care record for each transition of care or referral. [employer] Allergies Active Allergy Reactions Criticality Noted Date [...] patient's age to complete this topic Insurance [facility] Care Teams Party Plan Sales Unit Advisor Relationship Specialty [place] [address] [place] [address] PCP - General 05/20/14
--- OUTSIDE RECORDS SUMMARY | 2024-04-26 22:16 | XMS_ITS | Encounter Summary ---
Author Organization [facility] Address [address] [place] [address]. [place] [address] Care Team Providers Care Welder Fitter Name Role Phone Torsten Arizmendi Primary Care [...] on file Legal Sex Female 3:18 AM FABRICATION AND ASSEMBLY SUPERVISOR Gender Identity Not on file Sexual Orientation Not on file COVID-19 Exposure Response Date Recorded In the last month, have you been in contact with someone who was confirmed or suspected to have Coronavirus / COVID-19? No / Unsure 03/26/2021 4:39 PM FABRICATION AND ASSEMBLY SUPERVISOR documented as of this encounter Plan of Treatment Not on file documented as of this encounter Visit Diagnoses Not on filedocumented in this encounter Additional Health Concerns Infection Onset Date Last Indicated Resolved Time Rule Out COVID-19 03/26/2021 03/26/2021 03/26/2021 5:29 PM FABRICATION AND ASSEMBLY SUPERVISOR documented as of this encounter Care Teams Welder Fitter Relationship Specialty Start Date End Date Torsten Arizmendi PCP - General Family Practice [facility]/25/19 [facility] [address] [place] [address] PCP - General 07/18/22 documented as of this encounter
[2024-04-26 22:22] LABS: Chloride* 102 mmol/L (96-114); Potassium* 3.8 mmol/L (3.6-5.1); Sodium* 138 mmol/L (135-149)
[2024-04-26 22:24] LABS: Blood Urea Nitrogen* 9 mg/dL (5-24); Creatinine* 0.7 mg/dL (0.5-1.5); Est. Creatinine Clearance* 101.01; Estimated Glomerular Filt Rate 113 ml/min
[2024-04-26 22:25] LABS: Anion Gap 8 mEq/L (7-15); Calcium* 9.1 mg/dL (8.4-10.6); Carbon Dioxide* 28 mmol/L (20-32); Glucose* 131 mg/dL (60-115)
[2024-04-26 22:42] LABS: PCR FLU A Negative PCR FLU A (Negative); PCR FLU B Negative PCR FLU B (Negative); PCR RSV Negative PCR RSV (Negative); SARS PCR* Negative SARS-CoV-2 (Negative)
[2024-04-26 22:57] VITALS: BP 121/74; PULSE 84; RESP 20; TEMP 36.7; O2SAT 99
== END 2024-04-26 22:57 | disposition home or self-care (01) ==
PROVIDERS: Emergency Provider Family Medicine
DX: R53.83 Other fatigue (principal)
CPT/HCPCS: 36415; 80048; 85025; 87631; 99283; 99284